=== PATIENT | female | born 1955 | race Caucasian/White ===

== ENCOUNTER 2016-09-30 12:36 | Inpatient (IN) | payer OTHER ==
[2016-09-30 14:00] VITALS: BP 129/78; PULSE 107; RESP 20; TEMP 98.3; O2SAT 94
[2016-09-30] MEDS ORDERED: AMLO5TAB2 PO (16:17)
[2016-09-30] MEDS ORDERED: FAMO20TA2 PO (16:18)
[2016-09-30] MEDS ORDERED: ESCI10TA PO (16:18)
[2016-09-30] MEDS ORDERED: LAMO25TA PO (16:19)
[2016-09-30] MEDS ORDERED: MAGN1TAB14 PO (16:20)
[2016-09-30] MEDS ORDERED: MULTTAB67 PO (16:21)
[2016-09-30] MEDS ORDERED: SERO25TA (16:22)
[2016-09-30 18:00] VITALS: BP 139/78; PULSE 98; RESP 18; TEMP 98.3
[2016-09-30] MEDS ORDERED: MAGNESIUM HYDROXIDE SUSP 30 ML CUP PO PRN (18:15)
[2016-09-30] MEDS ORDERED: LORazepam 2 MG/ML VIAL IV PUSH PRN ×4 (18:15)
[2016-09-30] MEDS ORDERED: LORazepam 2 MG TAB PO PRN (18:15)
[2016-09-30] MEDS ORDERED: ALUMINUM/MAGNESIUM/SIMETH 30 ML CUP PO PRN (18:15)
[2016-09-30] MEDS ORDERED: FLUMAZENIL 0.5 MG/5 ML VIAL IV PUSH PRN (18:15)
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
[2016-09-30] MEDS: amLODIPine BESYLATE 5 MG TAB PO SCH (20:11)
[2016-09-30] MEDS: QUEtiapine FUMARATE 25 MG TAB PO SCH (20:11)
[2016-09-30] MEDS: lamoTRIgine 25 MG TAB PO SCH (20:11)
[2016-09-30] MEDS: LORazepam 1 MG TAB PO PRN (20:58)
[2016-09-30] MEDS ORDERED: diphenhydrAMINE HCL 50 MG CAP PO PRN (21:00)
[2016-10-01 05:48] VITALS: BP 158/75; PULSE 94; RESP 16; TEMP 98; O2SAT 96
[2016-10-01] MEDS: lamoTRIgine 25 MG TAB PO SCH ×2 (09:00→20:32)
[2016-10-01] MEDS: amLODIPine BESYLATE 5 MG TAB PO SCH ×2 (09:00→20:32)
[2016-10-01] MEDS: DULoxetine HCl DR 30 MG CAP PO SCH (09:00)
[2016-10-01] MEDS: hydrOXYzine HCL 50 MG TAB PO PRN ×2 (11:25→22:10)
--- NOTE | 2016-10-01 15:03 | HHI.PYPN ---
Subjective Remarks This is a request for second opinion from Dr. Tuttle. Patient was seen, discussed with nursing, and records were reviewed. Patient has some mild tremors. She is alert and oriented 4, no auditory or visual loosening patient , no nausea or vomiting. Patient's mood has improved and she denies suicidal ideation intent or plan Objective Alert: Yes [place]: Person, Place, Date, Situation Mood: Anxious Affect: Restricted Memory Intact: Comment (not formally tested) Hallucinations: Auditory (denies) Delusions: No Delusion Type: Other (denies) Suicidal: Ideation (denies) Homicidal: Ideation (denies) Insight/Judgment Poor Vitals/IOs Vital Signs Date Time Temp Pulse Resp B/P Pulse Ox O2 Delivery O2 Flow Rate FiO2 10/01/16 05:48 98.0 94 16 158/75 96 Assessment & Plan Problem List: (1) Alcohol abuse ICD Code: F10.10 (2) Severe recurrent major depression without psychotic features ICD Code: F33.2 Assessment & Plan I agree with the first opinion. Criteria include suicidal ideation and alcohol abuse Justification for Cont. Inpt. Patient will decompensate in a less restrictive setting Request HC Surrog/Guard Advoc?: No Igor Humphrey DO Oct 01, 2016 15:03
--- NOTE | 2016-10-01 16:07 | PD.CONS ---
[facility] By [facility]ry team Reason for Consult Medical management HTN, EtOH Primary Care Physician Unknown Diagnoses: History of Present Illness Patient is a 61-year-old white female with primary medical history of HTN, GERD , PTSD, EtOH who came in to the hospital under Casas act from [facility] secondary to suicidal ideation. Patient is now admitted to inpatient psychiatry unit for further evaluation. Consulted for medical management. Patient seen today. Verified her past medical history including HTN, GERD, diverticulitis, PTSD, history of 1 seizure secondary to alcohol withdrawal. States she recently had a fall from the stairs prior to her hospitalization to [facility] and her back is painful, 8/10 to movement, dull achy, aggravated by bending, prolonged sitting, radiates to her upper back from her lower back, unrelieved by Tylenol use. States she has a right leg sean placement and has a hairline fracture of the fibula few months back, she did not see any orthopedist secondary to unable to afford co-pay for the visit. States it is also painful when she walks but her back is bothering her more than her leg. Requesting for some pain medication. Patient admitted to alcohol use one bottle of vodka daily. Reports mild tremors right now. Otherwise, denies SOB/ dyspnea. Denies chest pain, palpitations, headaches, dizziness. Denies fevers, chills, n/v/d. Review of Systems Except as stated in HPI: all other systems reviewed are Neg Past Family Social History Allergies: Coded Allergies: No Known Allergies (Unverified , 09/30/16) Past Medical History HTN GERD next and diverticulitis PTSD Seizure 1 secondary to alcohol withdrawal EtOH Past Surgical History Bursa of the hip with MRSA, sx Left knee replacement Right leg sean placement Right shoulder surgery Hysterectomy Cystocele Rectocele Reported Medications Lamotrigine 25 mg twice a day Escitalopram 10 mg daily Seroquel 25 daily Amlodipine 5 mg twice a day Famotidine 20 mg daily Multivitamin 1 tab daily Magnesium 400 twice a day Active Ordered Medications Current Medications Medications (Trade) Dose Ordered Sig/Perry Route Start Time Stop Time Status Last Admin (Benadryl) 50 mg HS PRN PO 09/30/16 21:00 (Tylenol) 650 mg Q4H PRN PO 09/30/16 18:15 (Milk Of Magnesia Liq) 30 ml DAILY PRN PO 09/30/16 18:15 (Mag-Al Plus Susp Liq) 30 ml Q6H PRN PO 09/30/16 18:15 (Atarax) 50 mg Q6H PRN PO 09/30/16 18:15 10/01/16 11:25 (Romazicon Inj) 0.2 mg Q1M PRN IV PUSH 09/30/16 18:15 (Ativan) 1 mg Q4H PRN PO 09/30/16 18:15 09/30/16 20:58 (Ativan Inj) 1 mg Q4H PRN IV PUSH 09/30/16 18:15 (Ativan) 2 mg Q2H PRN PO 09/30/16 18:15 (Ativan Inj) 2 mg Q2H PRN IV PUSH 09/30/16 18:15 (Ativan Inj) 2 mg Q1H PRN IV PUSH 09/30/16 18:15 (Ativan Inj) 2 mg Q15M PRN IV PUSH 09/30/16 18:15 (Norvasc) 5 mg BID PO 09/30/16 21:00 10/01/16 09:00 (LaMICtal) 25 mg BID PO 09/30/16 21:00 10/01/16 09:00 (SEROquel) 25 mg HS PO 09/30/16 21:00 09/30/16 20:11 (Cymbalta Dr) 30 mg DAILY PO 10/01/16 09:00 10/01/16 09:00 Family History Mother, father, sibling has heart disease, diabetes Social History Daily alcohol use one bottle vodka 2 pack per week tobacco use current Denies illicit drug use Physical Exam Vital Signs Vital Signs Date Time Temp Pulse Resp B/P Pulse Ox O2 Delivery O2 Flow Rate FiO2 10/01/16 05:48 98.0 94 16 158/75 96 09/30/16 18:00 98.3 98 18 139/78 Physical Exam GENERAL: This is a well-nourished, well-developed patient, in no apparent distress. SKIN: No rashes, ecchymoses or lesions. Warm and dry. HEAD: Atraumatic. Normocephalic. No temporal or scalp tenderness. EYES: Pupils equal round and reactive. No scleral icterus. No injection or drainage. ENT: Nose without bleeding. Throat without erythema. Uvula midline. Airway patent. NECK: Trachea midline. No JVD or lymphadenopathy. Supple. CARDIOVASCULAR: Regular rate and rhythm without murmurs, gallops, or rubs. RESPIRATORY: No wheezes, rales, or rhonchi. Moderate air entry GASTROINTESTINAL: Abdomen soft, non-tender, nondistended. Bowel sounds active 4. MUSCULOSKELETAL: Extremities without clubbing, cyanosis, or edema. Lumbar and thoracic area mild tenderness to palpation. Guarded gait, left-leaning secondary to pain on the right lower extremity. Mild tremors bilateral upper extremity. NEUROLOGICAL: Awake and alert. No focal neuro deficit. Motor and sensory grossly within normal limits. Normal speech. Assessment and Plan Problem List: (1) Severe recurrent major depression without psychotic features ICD Code: F33.2 Status: Acute (2) Depression, major, single episode, moderate ICD Code: F32.1 Status: Acute (3) Alcohol abuse ICD Code: F10.10 Status: Acute (4) HTN (hypertension) ICD Code: I10 Status: Chronic Assessment and Plan Patient is a 61-year-old white female with primary medical history of HTN, GERD , PTSD, EtOH who came in to the hospital under Casas act from [facility] secondary to suicidal ideation. Patient is now admitted to inpatient psychiatry unit for further evaluation. Consulted for medical management. Suicidal ideation, depression - Managed by psychiatry team Seizures, from alcohol withdrawal - Continue lamotrigine - Seizure precautions EtOH - High risk for seizure from withdrawal - [facility] protocol - Folic acid, thiamine - Monitor for withdrawals HTN - Continue with amlodipine 5 mg daily Right leg pain Back pain, spasms - Start baclofen 10 mg 3 times a day when necessary - If continues to have pain on the right leg or back we'll consider x-rays studies GERD - Counseled patient EtOH can promote GERD symptoms - Pantoprazole for now DVT prop ambulatory Written by Tika Tobin, acting as scribe for Dr. Almodovar on 10/01/16 at 16:07. All or portions of this note were transcribed by donita COMBS. I, Dr. Ericka Almodovar personally performed the history, physical exam, and medical decision making; and confirmed the accuracy of the information in the transcribed note. Authenticated by Dr. Ericka Almodovar on 10/01/16 at 16:07. Code Status Full code Discussed Condition With Patient, nursing Tika Caal Oct 01, 2016 16:07 Ericka Almodovar MD Oct 02, 2016 16:02
[2016-10-01] MEDS ORDERED: IBUPROFEN 600 MG TAB PO PRN (17:30)
[2016-10-01 19:34] VITALS: BP 165/107; PULSE 106; RESP 18; TEMP 98.1; O2SAT 95
[2016-10-01] MEDS: BACLOFEN 10 MG TAB PO PRN (20:32)
[2016-10-01] MEDS: QUEtiapine FUMARATE 25 MG TAB PO SCH (20:32)
[2016-10-02] VITALS (7 sets, daily range): BP systolic 117–184; BP diastolic 66–99; PULSE 90–110; RESP 17–20; TEMP 97.9–98.2; O2SAT 97–99
[2016-10-02] MEDS: ACETAMINOPHEN 325 MG TAB PO PRN (04:53)
[2016-10-02] MEDS: hydrOXYzine HCL 50 MG TAB PO PRN (04:54)
[2016-10-02] MEDS ORDERED: cloNIDine HCL 0.1 MG TAB PO ONE (05:15)
[2016-10-02] MEDS: amLODIPine BESYLATE 5 MG TAB PO SCH ×2 (09:08→21:36)
[2016-10-02] MEDS: FOLIC ACID 1 MG TAB PO SCH (09:08)
[2016-10-02] MEDS: THIAMINE HCL 100 MG TAB PO SCH (09:08)
[2016-10-02] MEDS: DULoxetine HCl DR 30 MG CAP PO SCH (09:08)
[2016-10-02] MEDS: lamoTRIgine 25 MG TAB PO SCH ×2 (09:09→21:35)
[2016-10-02] MEDS: BACLOFEN 10 MG TAB PO PRN ×2 (09:48→16:50)
[2016-10-02] MEDS: LORazepam 1 MG TAB PO PRN ×2 (11:24→16:50)
[2016-10-02] MEDS: cloNIDine HCL 0.1 MG TAB PO PRN (15:23)
[2016-10-02] MEDS ORDERED: LORazepam 2 MG/ML VIAL IV PUSH ONE (16:00)
--- NOTE | 2016-10-02 16:34 | HHI.PYPN ---
Subjective Remarks Patient was seen and case discussed with nursing. This afternoon her blood pressure has been elevated. She was 1. She is alert and oriented 4. No tremors, nausea or vomiting, visual hallucinations or acute change in mental status. However she is complaining of a headache had mild chest pain earlier, and her left eye is blurry. Medical team was called, Dr. Montgomery, and she was asked to evaluate patient today and Dr. Montgomery confirmed that she will come evaluate her in person today. Mood is stable at this time. She denies suicidal ideation intent or plan. Objective Alert: Yes [place]: Person, Place, Date, Situation Mood: Calm Affect: Euthymic Memory Intact: Comment (not formally tested) Hallucinations: Auditory (denies) Delusions: No Delusion Type: Other (denies) Suicidal: Ideation (denies) Homicidal: Ideation (denies) Insight/Judgment fair Vitals/IOs Vital Signs Date Time Temp Pulse Resp B/P Pulse Ox O2 Delivery O2 Flow Rate FiO2 10/02/16 15:00 106 18 184/99 10/02/16 05:00 97.9 97 Assessment & Plan Problem List: (1) Alcohol abuse ICD Code: F10.10 (2) Severe recurrent major depression without psychotic features ICD Code: F33.2 Assessment & Plan EKG ordered, awaiting medical consult. Justification for Cont. Inpt. Patient will decompensate in a less restrictive setting Request HC Surrog/Guard Advoc?: No Igor Humphrey DO Oct 02, 2016 16:34
[2016-10-02] MEDS: PROPRANOLOL HCL 10 MG TAB PO PRN (16:50)
[2016-10-02] MEDS ORDERED: ASPIRIN 325 MG TAB PO ONE (17:15)
[2016-10-02] MEDS ORDERED: NITROGLYCERIN 0.4 MG SL 25 TABS/BTL SL PRN (17:15)
--- NOTE | 2016-10-02 17:25 | HHI.PR ---
Subjective Remarks Patient seen today for complaints of chest pain. Chest pain is described as sharp midsternal, nonradiating, not associated with any nausea, vomiting, diaphoresis, or shortness of breath, rated 5/10 the patient states that it was higher than that earlier, not aggravated by exertion. States that she is feeling the pain on her chest but she feels burning sensation on her neck towards her ears. She wasn't given any pain medications but the pain has subsided because she has rested. Patient known history of EtOH abuse, 1 bottle vodka daily. Known to have seizure secondary to alcohol withdrawals. Patient states she's been having "the shakes." States it's not getting worse. Otherwise, denies SOB/ dyspnea. Denies chest pain, palpitations, headaches, dizziness. Denies fevers, chills, n/v/d. Objective Vitals Vital Signs Date Time Temp Pulse Resp B/P Pulse Ox O2 Delivery O2 Flow Rate FiO2 10/02/16 15:00 106 18 184/99 10/02/16 10:50 103 18 150/89 10/02/16 06:15 95 147/72 10/02/16 05:05 100 20 160/90 10/02/16 05:00 97.9 110 17 170/91 97 10/01/16 19:34 98.1 106 18 165/107 95 Objective Remarks GENERAL: This is a well-nourished, well-developed patient, in no apparent distress. SKIN: No rashes, ecchymoses or lesions. Warm and dry. HEAD: Atraumatic. Normocephalic. No temporal or scalp tenderness. EYES: Pupils equal round and reactive. No scleral icterus. No injection or drainage. ENT: Nose without bleeding. Throat without erythema. Uvula midline. Airway patent. NECK: Trachea midline. No JVD or lymphadenopathy. Supple. CARDIOVASCULAR: Tachycardia with systolic 2/6 murmurs, gallops, or rubs. RESPIRATORY: No wheezes, rales, or rhonchi. Moderate air entry GASTROINTESTINAL: Abdomen soft, non-tender, nondistended. Bowel sounds active 4. MUSCULOSKELETAL: Extremities without clubbing, cyanosis, or edema. Mild tremors bilateral upper extremity. NEUROLOGICAL: Awake and alert. No focal neuro deficit. Motor and sensory grossly within normal limits. Normal speech. A/P Problem List: (1) Severe recurrent major depression without psychotic features ICD Code: F33.2 Status: Acute (2) Depression, major, single episode, moderate ICD Code: F32.1 Status: Acute (3) Alcohol abuse ICD Code: F10.10 Status: Acute (4) HTN (hypertension) ICD Code: I10 Status: Chronic Assessment and Plan Patient is a 61-year-old white female with primary medical history of HTN, GERD , PTSD, EtOH who came in to the hospital under Casas act from [facility] secondary to suicidal ideation. Patient is now admitted to inpatient psychiatry unit for further evaluation. Consulted for medical management. Chest pain, rule out ACS HTN, uncontrolled, urgency - Check serial EKG, serial troponin, serial CK - Check CBC, CMP, magnesium - Chest x-ray - Patient has known EtOH abuse, one bottle of vodka daily. Possible withdrawal symptoms would include tachycardia, elevated BP and tremors. Continue CIWA. - ASA 3251 dose, nitroglycerin sublingual when necessary - Continue with BP med Norvasc 5 mg twice a day, clonidine 0.1 mg when necessary, propanolol 10 mg when necessary. Add propanolol 20 mg twice a day. - Monitor BP trend - On exam patient appears to be comfortable, worried about dinner being cold , chest pain nonreproducible but states she's feeling better. After exam, patient immediately stood up and went to have dinner. Suicidal ideation, depression - Managed by psychiatry team Seizures, from alcohol withdrawal - Continue lamotrigine - Seizure precautions EtOH - High risk for seizure from withdrawal - CIWA protocol - Folic acid, thiamine - Monitor for withdrawals Right leg pain Back pain, spasms - Start baclofen 10 mg 3 times a day when necessary - If continues to have pain on the right leg or back we'll consider x-rays studies GERD - Counseled patient EtOH can promote GERD symptoms - Pantoprazole for now DVT prop ambulatory Discussed with patient, nursing, DrTika Andrade Oct 02, 2016 17:25 Ericka Almodovar MD Oct 02, 2016 19:09
[2016-10-02 17:55] LABS: CREATINE KINASE 84 U/L (26-192)
--- NOTE | 2016-10-02 17:59 | RADRPT ---
EXAM DATE/TIME: 10/02/2016 17:10 [place] COMPARISON: No previous studies available for comparison. EXTERNAL COMPARISON : [facility] INDICATIONS : Chest pain. MEDICAL HISTORY : Hypertension. SURGICAL HISTORY : Biopsy, right breast. ENCOUNTER: Initial ACUITY: 1 day PAIN SCORE: 3/10 LOCATION: Left chest FINDINGS: A single view of the chest demonstrates the lungs to be symmetrically aerated without evidence of mas s, infiltrate or effusion. Minimal basilar atelectasis. The cardiomediastinal contours are unremarka ble. Osseous structures are intact. CONCLUSION: 1. Minimal basilar atelectasis. Exam otherwise unremarkable. Braxton May MD on October 02, 2016 at 17:58 Board Certified Radiologist. This report was verified electronically.
[2016-10-02 19:38] LABS: ALKALINE PHOSPHATASE 83 U/L (45-117); ALT (GPT) 35 U/L (10-53); ANION GAP 10 MEQ/L (5-15); AST (GOT) 45 U/L (15-37); BICARBONATE 23.9 MEQ/L (21.0-32.0); BLOOD UREA NITROGEN 20 MG/DL (7-18); CHLORIDE 103 MEQ/L (98-107); GLOMERULAR FILTRATION RATE 61 ML/MIN (>89); MAGNESIUM 2.2 MG/DL (1.5-2.5); POTASSIUM 4.2 MEQ/L (3.5-5.1); SODIUM (NA) 137 MEQ/L (136-145); TOTAL BILIRUBIN ADULT 0.3 MG/DL (0.2-1.0)
[2016-10-02 21:22] LABS: AUTOMATED NEUTROPHIL # 4.6 TH/MM3 (1.8-7.7); BASOPHIL # 0.1 TH/MM3 (0-0.2); BASOPHIL % 0.7 % (0.0-2.0); EOSINOPHIL # 0.2 TH/MM3 (0-0.4); HEMATOCRIT 38.3 % (35.0-46.0); HEMO FLAGS DIFF FINAL; LYMPH % 27.3 % (9.0-44.0); LYMPHOCYTE # 2.1 TH/MM3 (1.0-4.8); MEAN CELL VOLUME 91.1 FL (80.0-100.0); MEAN CORPUSCULAR HEMOGLOBIN 30.3 PG (27.0-34.0); MEAN CORPUSCULAR HGB CONC 33.2 % (32.0-36.0); MONO % 10.7 % (0.0-8.0); NEUT % 59.3 % (16.0-70.0); PLATELET COUNT 209 TH/MM3 (150-450); RED BLOOD COUNT 4.21 MIL/MM3 (4.00-5.30); WHITE BLOOD COUNT 7.8 TH/MM3 (4.0-11.0)
[2016-10-02] MEDS: PROPRANOLOL HCL 20 MG TAB PO SCH (21:35)
[2016-10-02] MEDS: QUEtiapine FUMARATE 25 MG TAB PO SCH (21:35)
[2016-10-03 00:30] LABS: CREATINE KINASE 67 U/L (26-192)
[2016-10-03 03:20] VITALS: BP 117/60; PULSE 82; RESP 20; TEMP 98.5; O2SAT 96
[2016-10-03 06:17] LABS: CREATINE KINASE 65 U/L (26-192)
[2016-10-03 06:24] VITALS: BP 117/60; PULSE 82; RESP 20; TEMP 98.5; O2SAT 96
[2016-10-03] MEDS: FOLIC ACID 1 MG TAB PO SCH (08:38)
[2016-10-03] MEDS: DULoxetine HCl DR 30 MG CAP PO SCH (08:38)
[2016-10-03] MEDS: PROPRANOLOL HCL 20 MG TAB PO SCH ×2 (08:39→21:10)
[2016-10-03] MEDS: PANTOPRAZOLE SOD 40 MG DELAYED RELEASE TAB PO SCH (08:39)
[2016-10-03] MEDS: lamoTRIgine 25 MG TAB PO SCH ×2 (08:39→21:10)
[2016-10-03] MEDS: amLODIPine BESYLATE 5 MG TAB PO SCH ×2 (08:39→21:10)
[2016-10-03] MEDS: THIAMINE HCL 100 MG TAB PO SCH (08:39)
[2016-10-03] MEDS: LORazepam 1 MG TAB PO PRN (09:19)
--- NOTE | 2016-10-03 13:56 | EKG ---
Date Performed: 10/02/2016 Time Performed: 16:51:33 PTAGE: 61 years EKG: SINUS TACHYCARDIA ABNORMAL RHYTHM ECG NO PREVIOUS TRACING DOCTOR: Diana Mariee Interpretating Date/Time 10/03/2016 13:55:44
--- NOTE | 2016-10-03 13:57 | HHI.PR ---
Subjective Remarks Follow up chest pain and tremors from yesterday. Patient was seen and examined. Tremors are noted but seem to be improving. Patient denies any further chest pain. She does state she is feeling a little more depressed today then she has been, and has not seen the psychiatrist today.She also denies any sob, nausea, vomiting, fever or chills. She is complaining of congestion from seasonal allergies. She states she usually takes [place] nasal spray OTC. Objective Vitals Vital Signs Date Time Temp Pulse Resp B/P Pulse Ox O2 Delivery O2 Flow Rate FiO2 10/03/16 06:24 98.5 82 20 117/60 96 10/03/16 03:20 98.5 82 20 117/60 96 10/02/16 21:00 98.2 90 20 154/98 99 10/02/16 19:51 107 117/66 97 10/02/16 15:00 106 18 184/99 I/O 10/02/16 10/02/16 10/02/16 10/03/16 10/03/16 10/03/16 07:00 15:00 23:00 07:00 15:00 23:00 Intake Total 360 ml Balance 360 ml Intake Oral 360 ml Result Diagram: 10/02/16 2100 10/02/16 1713 Objective Remarks GENERAL: This is a well-nourished, well-developed patient, who is crying from depression. SKIN: No rashes, ecchymoses or lesions. Warm and dry. HEAD: Atraumatic. Normocephalic. No temporal or scalp tenderness. EYES: Pupils equal round and reactive. No scleral icterus. No injection or drainage. ENT: Nose without bleeding. Throat without erythema. Uvula midline. Airway patent. NECK: Trachea midline. No JVD or lymphadenopathy. Supple. CARDIOVASCULAR: Regular rate and rhythm, no gallops, or rubs. RESPIRATORY: No wheezes, rales, or rhonchi. Moderate air entry GASTROINTESTINAL: Abdomen soft, non-tender, nondistended. Bowel sounds active 4. MUSCULOSKELETAL: Extremities without clubbing, cyanosis, or edema. Decreased tremors in bilateral upper extremity. NEUROLOGICAL: Awake and alert. No focal neuro deficit. Motor and sensory grossly within normal limits. Normal speech. A/P Medications and IVs Current Medications Medications (Trade) Dose Ordered Sig/Perry Route Start Time Stop Time Status Last Admin (Benadryl) 50 mg HS PRN PO 09/30/16 21:00 (Tylenol) 650 mg Q4H PRN PO 09/30/16 18:15 10/02/16 04:53 (Milk Of Magnesia Liq) 30 ml DAILY PRN PO 09/30/16 18:15 (Mag-Al Plus Susp Liq) 30 ml Q6H PRN PO 09/30/16 18:15 (Atarax) 50 mg Q6H PRN PO 09/30/16 18:15 10/02/16 04:54 (Romazicon Inj) 0.2 mg Q1M PRN IV PUSH 09/30/16 18:15 (Ativan) 1 mg Q4H PRN PO 09/30/16 18:15 10/03/16 09:19 (Ativan Inj) 1 mg Q4H PRN IV PUSH 09/30/16 18:15 (Ativan) 2 mg Q2H PRN PO 09/30/16 18:15 10/01/16 15:45 (Ativan Inj) 2 mg Q2H PRN IV PUSH 09/30/16 18:15 (Ativan Inj) 2 mg Q1H PRN IV PUSH 09/30/16 18:15 (Ativan Inj) 2 mg Q15M PRN IV PUSH 09/30/16 18:15 (Norvasc) 5 mg BID PO 09/30/16 21:00 10/03/16 08:39 (LaMICtal) 25 mg BID PO 09/30/16 21:00 10/03/16 08:39 (SEROquel) 25 mg HS PO 09/30/16 21:00 10/02/16 21:35 (Cymbalta Dr) 30 mg DAILY PO 10/01/16 09:00 10/03/16 08:38 (Folate) 1 mg DAILY PO 10/02/16 09:00 10/03/16 08:38 (Vitamin B1) 100 mg DAILY PO 10/02/16 09:00 10/03/16 08:39 (Lioresal) 10 mg Q8HR PRN PO 10/01/16 16:15 10/02/16 16:50 (Motrin) 600 mg Q6H PRN PO 10/01/16 17:30 (Catapres) 0.1 mg Q6H PRN PO 10/02/16 05:30 10/02/16 15:23 (Inderal) 10 mg Q8HR PRN PO 10/02/16 17:00 10/02/16 16:50 ([place] 5-325 Mg) 1 tab Q6H PRN PO 10/02/16 17:00 (Nitrostat Sl) 0.4 mg Q5M PRN SL 10/02/16 17:15 (Inderal) 20 mg Q12HR PO 10/02/16 21:00 10/03/16 08:39 (Protonix) 40 mg DAILY PO 10/03/16 09:00 10/17/16 08:59 10/03/16 08:39 Urinary Catheter: No Vascular Central Line Catheter: No A/P Problem List: (1) Severe recurrent major depression without psychotic features ICD Code: F33.2 Status: Acute (2) Depression, major, single episode, moderate ICD Code: F32.1 Status: Acute (3) Alcohol abuse ICD Code: F10.10 Status: Chronic (4) HTN (hypertension) ICD Code: I10 Status: Chronic (5) Seasonal allergies ICD Code: J30.2 Status: Acute (6) GERD (gastroesophageal reflux disease) ICD Code: K21.9 Status: Chronic (7) Chest pain ICD Code: R07.9 Status: Resolved Assessment and Plan Patient is a 61-year-old female with a medical history of HTN, GERD, PTSD, EtOH who came in to the hospital under Casas act from [facility] secondary to suicidal ideation. Patient is now admitted to inpatient psychiatry unit for further evaluation. We are continuing to follow for medical management and chest pain. Chest pain, resolved, HTN controlled, Withdrawal symptoms improving Labs: Troponin and CPK negative, CBC, Mg and CMP unremarkable Chest x-ray shows minimal basilar atelectasis - Cont sublingual nitro if needed - Continue with BP med Norvasc 5 mg twice a day, clonidine 0.1 mg when necessary, propranolol 10 mg prn. - Cont propranolol 20 mg twice a day. - Monitor BP and trend Suicidal ideation, depression - Managed by psychiatry team Seizures, from alcohol withdrawal - Continue lamotrigine - Seizure precautions EtOH abuse, chronic - Cont [facility] protocol - Folic acid, thiamine - Monitor for withdrawals Right leg pain, currently resolved Back pain, spasms - Cont baclofen 10 mg 3 times a day when necessary - If continues to have pain on the right leg or back we'll consider x-rays studies GERD, chronic - Cont Pantoprazole Daily Seasonal allergies, patient usually takes [place] nasal spray at home. -Flonase BID DVT prophylaxis: Encourage ambulation Discussed with patient, and nursing staff Written by SAMEER Zimmerman acting as scribe for Dr. Almodovar on 10/03/16 at 11: 22. All or portions of this note were transcribed by scribErika COMBS. I, Dr. Ericka Almodovar personally performed the history, physical exam, and medical decision making; and confirmed the accuracy of the information in the transcribed note. Authenticated by Dr. Ericka Almodovar on 10/03/16 at 11:22. Discharge Planning Once cleared by psychiatry Claudia Vinson Oct 03, 2016 13:57 Ericka Almodovar MD Oct 03, 2016 16:05
--- NOTE | 2016-10-03 14:06 | EKG ---
Date Performed: 10/03/2016 Time Performed: 06:17:51 PTAGE: 61 years EKG: Sinus rhythm Since previous tracing, no significant change noted NORMAL ECG PREVIOUS TRACING : 10/02/2016 22.28 DOCTOR: Diana Mariee Interpretating Date/Time 10/03/2016 14:04:38
--- NOTE | 2016-10-03 14:06 | EKG ---
Date Performed: 10/02/2016 Time Performed: 22:28:16 PTAGE: 61 years EKG: Sinus rhythm Since previous tracing, no significant change noted NORMAL ECG PREVIOUS TRACING : 10/02/2016 16.51 DOCTOR: Diana Mariee Interpretating Date/Time 10/03/2016 14:04:27
--- NOTE | 2016-10-03 16:13 | HHI.PYPN ---
Subjective Remarks Patient discussed with treatment team, chart reviewed, patient showing unit. Patient remains manic somewhat intrusive intense superficial, though she is compliant with medications. Though at times appears to be somewhat drug- seeking. I reviewed with her the see work protocols and that to be no additional benzodiazepines offered. Patient also somewhat minimized how significant her alcohol use is. Review of Systems Except as stated in HPI: all other systems reviewed are Neg Objective Alert: Yes [place]: Person, Place, Date, Situation Mood: Calm Affect: Euthymic Memory Intact: Comment (not formally tested) Hallucinations: Auditory (denies) Delusions: No Delusion Type: Other (denies) Suicidal: Ideation (denies) Homicidal: Ideation (denies) Insight/Judgment Poor Labs Test 10/02/16 10/02/16 10/02/16 10/03/16 17:13 21:00 23:15 05:12 Sodium Level 137 MEQ/L Potassium Level 4.2 MEQ/L Chloride Level 103 MEQ/L Carbon Dioxide Level 23.9 MEQ/L Anion Gap 10 MEQ/L Blood Urea Nitrogen 20 MG/DL Creatinine 0.94 MG/DL Estimat Glomerular Filtration 61 ML/MIN Rate Random Glucose 100 MG/DL Calcium Level 9.2 MG/DL Magnesium Level 2.2 MG/DL Total Bilirubin 0.3 MG/DL Aspartate Amino Transf 45 U/L (AST/SGOT) Alanine Aminotransferase 35 U/L (ALT/SGPT) Alkaline Phosphatase 83 U/L Total Creatine Kinase 84 U/L 67 U/L 65 U/L Troponin I LESS THAN 0.02 LESS THAN 0.02 LESS THAN 0.02 NG/ML NG/ML NG/ML Total Protein 7.1 GM/DL Albumin 3.6 GM/DL White Blood Count 7.8 TH/MM3 Red Blood Count 4.21 MIL/MM3 Hemoglobin 12.7 GM/DL Hematocrit 38.3 % Mean Corpuscular Volume 91.1 FL Mean Corpuscular Hemoglobin 30.3 PG Mean Corpuscular Hemoglobin 33.2 % Concent Red Cell Distribution Width 14.0 % Platelet Count 209 TH/MM3 Mean Platelet Volume 8.2 FL Neutrophils (%) (Auto) 59.3 % Lymphocytes (%) (Auto) 27.3 % Monocytes (%) (Auto) 10.7 % Eosinophils (%) (Auto) 2.0 % Basophils (%) (Auto) 0.7 % Neutrophils # (Auto) 4.6 TH/MM3 Lymphocytes # (Auto) 2.1 TH/MM3 Monocytes # (Auto) 0.8 TH/MM3 Eosinophils # (Auto) 0.2 TH/MM3 Basophils # (Auto) 0.1 TH/MM3 CBC Comment DIFF FINAL Differential Comment Vitals/IOs Vital Signs Date Time Temp Pulse Resp B/P Pulse Ox O2 Delivery O2 Flow Rate FiO2 10/03/16 06:24 98.5 82 20 117/60 96 Assessment & Plan Problem List: (1) Alcohol abuse ICD Code: F10.10 (2) Severe recurrent major depression without psychotic features ICD Code: F33.2 Assessment & Plan Estimated LOS: days patient mood appears to be recovering, there appears to be some lability noted at this time. Patient compliant medications. For now continue treatment Justification for Cont. Inpt. At this time patient will decompensate placed in the lower level of care Discharge Planning To be determined Request HC Surrog/Guard Advoc?: No Feng Tuttle MD Oct 03, 2016 16:13
[2016-10-03] MEDS: BACLOFEN 10 MG TAB PO PRN (17:32)
[2016-10-03 18:23] VITALS: BP 160/102; PULSE 99; RESP 20; TEMP 96.9; O2SAT 100
[2016-10-03] MEDS: QUEtiapine FUMARATE 25 MG TAB PO SCH (21:10)
[2016-10-03] MEDS: FLUTICASONE PROPIONATE 50 MCG/ACT 16 GM NASAL SPRAY EACH NARE SCH (21:11)
[2016-10-04 05:23] VITALS: BP 155/94; PULSE 95; RESP 18; TEMP 97.2; O2SAT 98
[2016-10-04] MEDS: BACLOFEN 10 MG TAB PO PRN ×3 (06:28→21:18)
[2016-10-04] MEDS: FLUTICASONE PROPIONATE 50 MCG/ACT 16 GM NASAL SPRAY EACH NARE SCH ×2 (09:11→21:18)
[2016-10-04] MEDS: lamoTRIgine 25 MG TAB PO SCH ×2 (09:11→20:19)
[2016-10-04] MEDS: DULoxetine HCl DR 30 MG CAP PO SCH (09:11)
[2016-10-04] MEDS: PROPRANOLOL HCL 20 MG TAB PO SCH ×2 (09:11→20:19)
[2016-10-04] MEDS: PANTOPRAZOLE SOD 40 MG DELAYED RELEASE TAB PO SCH (09:11)
[2016-10-04] MEDS: THIAMINE HCL 100 MG TAB PO SCH (09:11)
[2016-10-04] MEDS: amLODIPine BESYLATE 5 MG TAB PO SCH ×2 (09:12→20:19)
[2016-10-04] MEDS: FOLIC ACID 1 MG TAB PO SCH (09:12)
[2016-10-04] MEDS: ACETAMINOPHEN/HYDROcodone 325 MG/5 MG TAB PO PRN (09:24)
--- NOTE | 2016-10-04 10:45 | HHI.PR ---
Addendum to Inpatient Note Addendum Reason: Additional Documentation Additional Information Patient is stable, blood pressure mildly elevated due to agitation, given Ativan this morning. Patient was playing cards and socializing in activity room this morning. We will sign off for now as patient is hemodynamically stable, please reconsult if needed. Cont Norvasc and propranolol for BP. (Claudia Vinson) Claudia Vinson Oct 04, 2016 10:44 Ericka Almodovar MD Oct 04, 2016 16:42
--- NOTE | 2016-10-04 12:59 | HHI.PYPN ---
Subjective Remarks Patient seen in [place] with nurse Marilu, chart reviewed, patient compliant medications, now denies suicidality, though she continues somewhat labile now stating lady she is living with his been hospitalized. There is some lability to her behaviors perhaps related to the withdrawal from her alcohol abuse. For now continue treatment no change Review of Systems Except as stated in HPI: all other systems reviewed are Neg Objective Alert: Yes [place]: Person, Place, Date, Situation Mood: Calm Affect: Euthymic Memory Intact: Comment (not formally tested) Hallucinations: Auditory (denies) Delusions: No Delusion Type: Other (denies) Suicidal: Ideation (denies) Homicidal: Ideation (denies) Insight/Judgment Poor Labs Test 10/03/16 18:10 Nasal Screen MRSA (PCR) NEGATIVE Vitals/IOs Vital Signs Date Time Temp Pulse Resp B/P Pulse Ox O2 Delivery O2 Flow Rate FiO2 10/04/16 05:23 97.2 95 18 155/94 98 Intake and Output 10/03/16 10/03/16 10/04/16 08:00 16:00 00:00 Intake Total 360 ml 240 ml Balance 360 ml 240 ml Assessment & Plan Problem List: (1) Alcohol abuse ICD Code: F10.10 (2) Severe recurrent major depression without psychotic features ICD Code: F33.2 Assessment & Plan Estimated LOS: days patient continues somewhat labile and tearful, though she denies suicidality at this time. For now continue treatment Justification for Cont. Inpt. At this time patient would decompensate placed a lower level of care Discharge Planning To be determined Request HC Surrog/Guard Advoc?: No Feng Tuttle MD Oct 04, 2016 12:59
[2016-10-04 17:47] VITALS: BP 146/83; PULSE 81; RESP 18; TEMP 97.6; O2SAT 98
[2016-10-04] MEDS: QUEtiapine FUMARATE 25 MG TAB PO SCH (20:19)
[2016-10-05 05:32] VITALS: BP 134/73; PULSE 95; RESP 17; TEMP 97.6; O2SAT 95
[2016-10-05] MEDS: DULoxetine HCl DR 30 MG CAP PO SCH (08:45)
[2016-10-05] MEDS: lamoTRIgine 25 MG TAB PO SCH ×2 (08:45→20:49)
[2016-10-05] MEDS: THIAMINE HCL 100 MG TAB PO SCH (08:45)
[2016-10-05] MEDS: PROPRANOLOL HCL 20 MG TAB PO SCH ×2 (08:45→20:49)
[2016-10-05] MEDS: FOLIC ACID 1 MG TAB PO SCH (08:45)
[2016-10-05] MEDS: PANTOPRAZOLE SOD 40 MG DELAYED RELEASE TAB PO SCH (08:46)
[2016-10-05] MEDS: amLODIPine BESYLATE 5 MG TAB PO SCH ×2 (08:46→20:48)
[2016-10-05] MEDS: FLUTICASONE PROPIONATE 50 MCG/ACT 16 GM NASAL SPRAY EACH NARE SCH ×2 (08:49→20:48)
[2016-10-05] MEDS: BACLOFEN 10 MG TAB PO PRN (09:10)
--- NOTE | 2016-10-05 12:33 | HHI.PYPN ---
Subjective Remarks Patient seen in [place] with nurse Georgette, chart review, continue somewhat labile, and intrusive. Patient states still some occasional auditory hallucinations towards bedtime, denies suicidality. Continues to be somewhat minimizing the role that alcohol placement life. For now continue treatment will increase at bedtime Seroquel to 50 mg Review of Systems Except as stated in HPI: all other systems reviewed are Neg Objective Alert: Yes [place]: Person, Place, Date, Situation Mood: Calm Affect: Euthymic Memory Intact: Comment (not formally tested) Hallucinations: Auditory (denies) Delusions: No Delusion Type: Other (denies) Suicidal: Ideation (denies) Homicidal: Ideation (denies) Insight/Judgment Poor Vitals/IOs Vital Signs Date Time Temp Pulse Resp B/P Pulse Ox O2 Delivery O2 Flow Rate FiO2 10/05/16 05:32 97.6 95 17 134/73 95 Assessment & Plan Problem List: (1) Alcohol abuse ICD Code: F10.10 (2) Severe recurrent major depression without psychotic features ICD Code: F33.2 Assessment & Plan Estimated LOS: days patient somewhat labile and depressed, with continued auditory hallucinations please see medication adjustment above Justification for Cont. Inpt. At this time patient will decompensate if placed on a lower level of care Discharge Planning To be determined Request HC Surrog/Guard Advoc?: No Feng Tuttle MD Oct 05, 2016 12:33
[2016-10-05] MEDS: cloNIDine HCL 0.1 MG TAB PO PRN (16:40)
[2016-10-05 16:44] VITALS: BP 186/103; PULSE 118
[2016-10-05 17:36] VITALS: BP 132/81; PULSE 101; RESP 18; TEMP 97.6; O2SAT 97
[2016-10-05] MEDS: ACETAMINOPHEN/HYDROcodone 325 MG/5 MG TAB PO PRN (20:45)
[2016-10-05] MEDS: QUEtiapine FUMARATE 25 MG TAB PO SCH (20:48)
[2016-10-05] MEDS: hydrOXYzine HCL 50 MG TAB PO PRN (20:59)
[2016-10-06] MEDS: ACETAMINOPHEN/HYDROcodone 325 MG/5 MG TAB PO PRN ×2 (03:45→13:36)
[2016-10-06 05:20] VITALS: BP 139/6; PULSE 80; RESP 16; TEMP 97.8
[2016-10-06] MEDS: FLUTICASONE PROPIONATE 50 MCG/ACT 16 GM NASAL SPRAY EACH NARE SCH ×2 (09:00→20:42)
[2016-10-06] MEDS: THIAMINE HCL 100 MG TAB PO SCH (09:26)
[2016-10-06] MEDS: amLODIPine BESYLATE 5 MG TAB PO SCH (09:26)
[2016-10-06] MEDS: PROPRANOLOL HCL 20 MG TAB PO SCH ×2 (09:26→20:39)
[2016-10-06] MEDS: PANTOPRAZOLE SOD 40 MG DELAYED RELEASE TAB PO SCH (09:26)
[2016-10-06] MEDS: DULoxetine HCl DR 30 MG CAP PO SCH (09:26)
[2016-10-06] MEDS: FOLIC ACID 1 MG TAB PO SCH (09:27)
[2016-10-06] MEDS: lamoTRIgine 25 MG TAB PO SCH ×2 (09:27→20:41)
--- NOTE | 2016-10-06 10:36 | HHI.PYPN ---
Subjective Remarks Patient seen in day room with nurse Tatyana, patient remains somewhat intrusive labile with some pressured rapid speech. Patient states that history of being somewhat intense with at times being somewhat of a thrill seeker/risk taker. Patient complaining of some swelling discomfort right lower leg and ankle. Will have hospitalist reconsult with that. Will increase Seroquel to 25 mg 8 AM and 4 PM continue the 50 mg at at bedtime Review of Systems Except as stated in HPI: all other systems reviewed are Neg Musculoskeletal: COMPLAINS OF: Joint Swelling (left lower leg and ankle with discomfort in that area) Objective Alert: Yes [place]: Person, Place, Date, Situation Mood: Calm Affect: Euthymic Memory Intact: Comment (not formally tested) Hallucinations: Auditory (denies) Delusions: No Delusion Type: Other (denies) Suicidal: Ideation (denies) Homicidal: Ideation (denies) Insight/Judgment Poor Vitals/IOs Vital Signs Date Time Temp Pulse Resp B/P Pulse Ox O2 Delivery O2 Flow Rate FiO2 10/06/16 05:20 97.8 80 16 139/6 10/05/16 17:36 97 Assessment & Plan Problem List: (1) Alcohol abuse ICD Code: F10.10 (2) Severe recurrent major depression without psychotic features ICD Code: F33.2 Assessment & Plan Estimated LOS: days considering patient's recent behaviors that appears to be a significant component of a mood disorder with her not adjusted depressive disorder need to consider that and are differential diagnosis please see med adjustments above also reconsult hospitalist to address swelling and discomfort left lower leg Justification for Cont. Inpt. At this time patient will decompensate a placed in a lower level of care Request HC Surrog/Guard Advoc?: No Feng Tuttle MD Oct 06, 2016 10:36
[2016-10-06] MEDS: QUEtiapine FUMARATE 25 MG TAB PO SCH ×2 (16:11→20:41)
--- NOTE | 2016-10-06 16:39 | HHI.PR ---
Subjective Remarks Reconsult for left lower extremity pain and swelling. Patient states initially began experiencing pain and swelling of the left lower leg and foot after she was admitted here. She does have a history of left total knee replacement. Currently on Norvasc which patient states she was started on while she was here however review of medical record shows this medication was continued as part of her medication reconciliation from [facility] - unclear if that medication was started during her previous hospitalization. Patient denies any recent trauma to the leg or previous history of DVTs. She reports that the swelling is better in the morning and then worsens throughout the day. Patient denies any other complaints. She denies any fever/chills, cough, nausea /vomiting, shortness of breath or chest pain. Patient denies any urinary complaints as well. Objective Vitals Vital Signs Date Time Temp Pulse Resp B/P Pulse Ox O2 Delivery O2 Flow Rate FiO2 10/06/16 05:20 97.8 80 16 139/6 10/05/16 17:36 97.6 101 18 132/81 97 10/05/16 16:44 118 186/103 Result Diagram: 10/02/16 2100 10/02/16 1713 Imaging Last Impressions Chest X-Ray 10/02/16 0000 Signed Impressions: Service Date/Time: Sunday, October 02, 2016 17:10 - CONCLUSION: 1. Minimal basilar atelectasis. Exam otherwise unremarkable. Braxton May MD Objective Remarks GENERAL: This is a well-nourished, well-developed patient, in no acute distress. Awake and alert. SKIN: No rashes, ecchymoses or lesions. Warm and dry. HEAD: Atraumatic. Normocephalic. EYES: EOMI. ENT: Nose without bleeding. Throat without erythema. Uvula midline. Airway patent. NECK: Trachea midline. No lymphadenopathy. Supple. CARDIOVASCULAR: Regular rate and rhythm, no gallops, or rubs. RESPIRATORY: No wheezes, rales, or rhonchi. Moderate air entry GASTROINTESTINAL: Abdomen soft, non-tender, nondistended. Bowel sounds active 4. MUSCULOSKELETAL: Extremities without clubbing or cyanosis. 1+ edema noted in LLE extending from upper calf to toes with increased warmth. Mild tenderness to palpation. No erythema appreciated. NEUROLOGICAL: Awake and alert. No focal neuro deficit. Motor and sensory grossly within normal limits. Normal speech. Medications and IVs Current Medications Medications (Trade) Dose Ordered Sig/Perry Route Start Time Stop Time Status Last Admin (Benadryl) 50 mg HS PRN PO 09/30/16 21:00 (Tylenol) 650 mg Q4H PRN PO 09/30/16 18:15 10/02/16 04:53 (Milk Of Magnesia Liq) 30 ml DAILY PRN PO 09/30/16 18:15 10/04/16 06:26 (Mag-Al Plus Susp Liq) 30 ml Q6H PRN PO 09/30/16 18:15 (Atarax) 50 mg Q6H PRN PO 09/30/16 18:15 10/05/16 20:59 (Romazicon Inj) 0.2 mg Q1M PRN IV PUSH 09/30/16 18:15 (Ativan) 1 mg Q4H PRN PO 09/30/16 18:15 10/03/16 09:19 (Ativan Inj) 1 mg Q4H PRN IV PUSH 09/30/16 18:15 (Ativan) 2 mg Q2H PRN PO 09/30/16 18:15 10/01/16 15:45 (Ativan Inj) 2 mg Q2H PRN IV PUSH 09/30/16 18:15 (Ativan Inj) 2 mg Q1H PRN IV PUSH 09/30/16 18:15 (Ativan Inj) 2 mg Q15M PRN IV PUSH 09/30/16 18:15 (Norvasc) 5 mg BID PO 09/30/16 21:00 Hold 10/06/16 09:26 (LaMICtal) 25 mg BID PO 09/30/16 21:00 10/06/16 09:27 (Cymbalta Dr) 30 mg DAILY PO 10/01/16 09:00 10/06/16 09:26 (Folate) 1 mg DAILY PO 10/02/16 09:00 10/06/16 09:27 (Vitamin B1) 100 mg DAILY PO 10/02/16 09:00 10/06/16 09:26 (Lioresal) 10 mg Q8HR PRN PO 10/01/16 16:15 10/05/16 09:10 (Motrin) 600 mg Q6H PRN PO 10/01/16 17:30 (Catapres) 0.1 mg Q6H PRN PO 10/02/16 05:30 10/05/16 16:40 (Inderal) 10 mg Q8HR PRN PO 10/02/16 17:00 10/02/16 16:50 ([place] 5-325 Mg) 1 tab Q6H PRN PO 10/02/16 17:00 10/06/16 13:36 (Nitrostat Sl) 0.4 mg Q5M PRN SL 10/02/16 17:15 (Inderal) 20 mg Q12HR PO 10/02/16 21:00 10/06/16 09:26 (Protonix) 40 mg DAILY PO 10/03/16 09:00 10/17/16 08:59 10/06/16 09:26 (Flonase Florin Spr) 1 spray BID EACH NARE 10/03/16 21:00 10/06/16 09:00 (SEROquel) 50 mg HS PO 10/05/16 21:00 10/05/16 20:48 (SEROquel) 25 mg BID@08,16 PO 10/06/16 16:00 10/06/16 16:11 A/P Problem List: (1) Severe recurrent major depression without psychotic features ICD Code: F33.2 Status: Acute (2) Depression, major, single episode, moderate ICD Code: F32.1 Status: Acute (3) Alcohol abuse ICD Code: F10.10 Status: Chronic (4) HTN (hypertension) ICD Code: I10 Status: Chronic (5) Seasonal allergies ICD Code: J30.2 Status: Acute (6) GERD (gastroesophageal reflux disease) ICD Code: K21.9 Status: Chronic (7) Chest pain ICD Code: R07.9 Status: Resolved Assessment and Plan Patient is a 61-year-old female with a medical history of HTN, GERD, PTSD, EtOH who came in to the hospital under Casas act from [facility] secondary to suicidal ideation. Patient is now admitted to inpatient psychiatry unit for further evaluation. Hospital service we consulted for left lower leg edema and pain.. Suicidal ideation, depression - Managed by psychiatry team Left lower leg edema/pain - doppler US ordered to R/O DVT although patient appears to be a low risk as she appears to be up and ambulating - hold Norvasc as possible medication side effect HTN - Continue on propanolol - As stated above Norvasc on hold - Monitor BP closely and adjust treatment as indicated Seizures, from alcohol withdrawal - Continue lamotrigine - Seizure precautions ETOH abuse, chronic - Cont CIWA protocol - Folic acid, thiamine - Monitor for withdrawals GERD, chronic - Cont Pantoprazole Daily Seasonal allergies, patient usually takes [place] nasal spray at home. -Flonase BID DVT prophylaxis: Encourage ambulation Written by La Nena Lemus PA-C acting as scribe for Dr. Abad on 10/06/16 at 13:34. This note was transcribed by scribe La Nena Lemus. I, Dr. Lo Abad personally performed the history, physical exam, and medical decision making; and confirmed the accuracy of the information in the transcribed note. Authenticated by Dr. Lo Abad on 10/06/16 at 16:41. La Nena Lemus Oct 06, 2016 16:39 Lo Abad MD Oct 06, 2016 16:41
--- NOTE | 2016-10-06 16:41 | RADRPT ---
EXAM DATE/TIME: 10/06/2016 16:06 [place] COMPARISON: No previous studies available for comparison. INDICATIONS : Left leg swelling. MEDICAL HISTORY : Seizures. Migraines. HTN. Diabetes. PTSD. SURGICAL HISTORY : Hysterectomy. Cystaseal. Rectoseal. Left lower hip replaced x2. Left leg broke and rebroke - sean a nd screw. ENCOUNTER: Initial ACUITY: 2 weeks PAIN SCORE: 5/10 LOCATION: Left leg. TECHNIQUE: Venous ultrasound of the leg was performed from the inguinal ligament to the proximal calf. Real-dexter e, color Doppler and spectral tracing, compression and augmentation techniques were used. FINDINGS: There is normal compressibility of the deep venous system from the inguinal region to the proximal ca lf. No echogenic clot is seen in the lumen of the common femoral, femoral, popliteal, and posterior tibial veins. There is a normal response of the venous system to proximal and distal augmentation an d respiration. CONCLUSION: Normal examination. Aleksandr Leigh MD on October 06, 2016 at 16:39 Board Certified Radiologist. This report was verified electronically.
[2016-10-07 05:02] VITALS: BP 140/68; PULSE 77; RESP 18; TEMP 97.8; O2SAT 99
[2016-10-07] MEDS: QUEtiapine FUMARATE 25 MG TAB PO SCH ×3 (08:21→20:13)
[2016-10-07] MEDS: FOLIC ACID 1 MG TAB PO SCH (09:18)
[2016-10-07] MEDS: PROPRANOLOL HCL 20 MG TAB PO SCH ×2 (09:18→20:13)
[2016-10-07] MEDS: PANTOPRAZOLE SOD 40 MG DELAYED RELEASE TAB PO SCH (09:18)
[2016-10-07] MEDS: THIAMINE HCL 100 MG TAB PO SCH (09:18)
[2016-10-07] MEDS: hydrOXYzine HCL 50 MG TAB PO PRN (09:19)
[2016-10-07] MEDS: BACLOFEN 10 MG TAB PO PRN (09:19)
[2016-10-07] MEDS: lamoTRIgine 25 MG TAB PO SCH ×2 (09:19→20:13)
[2016-10-07] MEDS: DULoxetine HCl DR 30 MG CAP PO SCH (09:19)
[2016-10-07] MEDS: FLUTICASONE PROPIONATE 50 MCG/ACT 16 GM NASAL SPRAY EACH NARE SCH ×2 (09:22→20:13)
--- NOTE | 2016-10-07 10:48 | HHI.PYPN ---
Subjective Remarks Patient more calm and euthymic today. She does not have serious complaints. Depressive symptoms appear to be lifting. Review of Systems ROS Limitations: Clinical Condition Objective Alert: Yes [place]: Person, Place, Date, Situation Mood: Calm Affect: Euthymic Memory Intact: Comment (not formally tested) Hallucinations: Auditory (denies) Delusions: No Delusion Type: Other (denies) Suicidal: Ideation (denies) Homicidal: Ideation (denies) Insight/Judgment Impaired but improving. Vitals/IOs Vital Signs Date Time Temp Pulse Resp B/P Pulse Ox O2 Delivery O2 Flow Rate FiO2 10/07/16 05:02 97.8 77 18 140/68 99 Assessment & Plan Problem List: (1) Alcohol abuse ICD Code: F10.10 (2) Severe recurrent major depression without psychotic features ICD Code: F33.2 Assessment & Plan Estimated LOS 3: days patient needs more time to improve her symptoms of depression and responded to antidepressant therapies. Justification for Cont. Inpt. Unable to care for self. Request HC Surrog/Guard Advoc?: No Brett Foley MD Oct 07, 2016 10:48
[2016-10-07 15:11] VITALS: BP 118/67; PULSE 87; RESP 15; O2SAT 98
[2016-10-07] MEDS: ACETAMINOPHEN/HYDROcodone 325 MG/5 MG TAB PO PRN (15:28)
[2016-10-07 19:15] VITALS: BP 125/60; PULSE 72; RESP 16; TEMP 98.6; O2SAT 100
[2016-10-08 05:36] VITALS: BP 151/75; PULSE 96; RESP 18; TEMP 98.3; O2SAT 98
[2016-10-08] MEDS: FLUTICASONE PROPIONATE 50 MCG/ACT 16 GM NASAL SPRAY EACH NARE SCH ×2 (08:44→21:00)
[2016-10-08] MEDS: DULoxetine HCl DR 30 MG CAP PO SCH (08:45)
[2016-10-08] MEDS: PANTOPRAZOLE SOD 40 MG DELAYED RELEASE TAB PO SCH (08:45)
[2016-10-08] MEDS: QUEtiapine FUMARATE 25 MG TAB PO SCH ×3 (08:45→21:00)
[2016-10-08] MEDS: PROPRANOLOL HCL 20 MG TAB PO SCH ×2 (08:45→21:00)
[2016-10-08] MEDS: lamoTRIgine 25 MG TAB PO SCH ×2 (08:45→21:00)
[2016-10-08] MEDS: FOLIC ACID 1 MG TAB PO SCH (08:45)
[2016-10-08] MEDS: BACLOFEN 10 MG TAB PO PRN ×2 (08:48→21:35)
[2016-10-08] MEDS: THIAMINE HCL 100 MG TAB PO SCH (09:00)
[2016-10-08] MEDS: hydrOXYzine HCL 50 MG TAB PO PRN ×2 (10:37→21:35)
[2016-10-08] MEDS: LORATADINE 10 MG TAB PO SCH (13:30)
[2016-10-08] MEDS ORDERED: ICU - MAGNESIUM SULFATE 2 GM/NS 100 ML IV PRN ×2 (14:30)
[2016-10-08] MEDS ORDERED: ICU - POTASSIUM PHOSPHATE MONOBASIC 500 MG TAB PO PRN (14:30)
[2016-10-08] MEDS ORDERED: ICU - D/C ICU ELECTROLYTE ORDERS PRN (14:30)
[2016-10-08] MEDS ORDERED: ICU - POTASSIUM CHLORIDE/AQUEOUS SOLN 20 MEQ/100 ML IVPB IV PRN (14:30)
[2016-10-08] MEDS ORDERED: ICU - SODIUM PHOSPHATE 30 MMOL/NS 250 ML IV PRN ×2 (14:30)
[2016-10-08] MEDS ORDERED: POTASSIUM CHLORIDE 25 MEQ EFFERVESCENT TAB PO PRN (14:30)
[2016-10-08] MEDS ORDERED: ICU - MAGNESIUM SULFATE 4 GM/NS 100 ML IV PRN ×2 (14:30)
[2016-10-08] MEDS ORDERED: ICU - CALL ORDERING PHYSICIAN PRN (14:30)
[2016-10-08] MEDS ORDERED: ICU - POTASSIUM PHOSPHATE 30 MMOL/NS 250 ML IV PRN ×2 (14:30)
[2016-10-08] MEDS ORDERED: ICU - POTASSIUM CHLORIDE/AQUEOUS SOLN 40 MEQ/100 ML IVPB IV PRN (14:30)
[2016-10-08] MEDS ORDERED: ICU - MAGNESIUM OXIDE 400 MG TAB PO PRN (14:30)
--- NOTE | 2016-10-08 14:33 | HHI.PR ---
Subjective Remarks Follow up left leg swelling, and hypertension. Patient seen and examined in her room today. She still complains of swelling to LLE, and states it is worse at night. Patient explained her knee surgery was one year ago, but she is unsure when the swelling started. Explained to her that Norvasc can cause extremity swelling, and that we could try another blood pressure medication. She stated she is willing to try it, because she feels her pressure is high cause she has occasional headaches. She is also complaining of nasal congestion and post nasal drip, and states the Flonase is not helping. She denies any chest pain, fever, chill, or shortness of breath. Objective Vitals Vital Signs Date Time Temp Pulse Resp B/P Pulse Ox O2 Delivery O2 Flow Rate FiO2 10/08/16 05:36 98.3 96 18 151/75 98 10/07/16 19:15 98.6 72 16 125/60 100 10/07/16 15:11 87 15 118/67 98 Imaging Last Impressions Lower Extremity Ultrasound 10/06/16 0000 Signed Impressions: Service Date/Time: September 16:06 - CONCLUSION: Normal examination. Aleksandr Leigh MD Chest X-Ray 10/02/16 0000 Signed Impressions: Service Date/Time: Sunday, October 02, 2016 17:10 - CONCLUSION: 1. Minimal basilar atelectasis. Exam otherwise unremarkable. Braxton May MD Objective Remarks GENERAL: This is a well-nourished, well-developed patient, who is in no distress. SKIN: No rashes, ecchymoses or lesions. Warm and dry. HEAD: Atraumatic. Normocephalic. No temporal or scalp tenderness. EYES: Pupils equal round and reactive. No scleral icterus. No injection or drainage. ENT: Nose without bleeding. Throat without erythema. Uvula midline. Airway patent. NECK: Trachea midline. No JVD or lymphadenopathy. Supple. CARDIOVASCULAR: Regular rate and rhythm, no gallops, or rubs. RESPIRATORY: No wheezes, rales, or rhonchi. Moderate air entry GASTROINTESTINAL: Abdomen soft, non-tender, nondistended. Bowel sounds active 4. MUSCULOSKELETAL: Left foot +2 pitting edema. No tremors noted. NEUROLOGICAL: Awake and alert. No focal neuro deficit. Motor and sensory grossly within normal limits. Normal speech. A/P Medications and IVs Current Medications Medications (Trade) Dose Ordered Sig/Perry Route Start Time Stop Time Status Last Admin (Benadryl) 50 mg HS PRN PO 09/30/16 21:00 (Tylenol) 650 mg Q4H PRN PO 09/30/16 18:15 10/02/16 04:53 (Milk Of Magnesia Liq) 30 ml DAILY PRN PO 09/30/16 18:15 10/04/16 06:26 (Mag-Al Plus Susp Liq) 30 ml Q6H PRN PO 09/30/16 18:15 (Atarax) 50 mg Q6H PRN PO 09/30/16 18:15 10/08/16 10:37 (Romazicon Inj) 0.2 mg Q1M PRN IV PUSH 09/30/16 18:15 (Ativan) 1 mg Q4H PRN PO 09/30/16 18:15 10/03/16 09:19 (Ativan Inj) 1 mg Q4H PRN IV PUSH 09/30/16 18:15 (Ativan) 2 mg Q2H PRN PO 09/30/16 18:15 10/01/16 15:45 (Ativan Inj) 2 mg Q2H PRN IV PUSH 09/30/16 18:15 (Ativan Inj) 2 mg Q1H PRN IV PUSH 09/30/16 18:15 (Ativan Inj) 2 mg Q15M PRN IV PUSH 09/30/16 18:15 (Norvasc) 5 mg BID PO 09/30/16 21:00 Hold 10/06/16 09:26 (LaMICtal) 25 mg BID PO 09/30/16 21:00 10/08/16 08:45 (Cymbalta Dr) 30 mg DAILY PO 10/01/16 09:00 10/08/16 08:45 (Folate) 1 mg DAILY PO 10/02/16 09:00 10/08/16 08:45 (Vitamin B1) 100 mg DAILY PO 10/02/16 09:00 10/08/16 09:00 (Lioresal) 10 mg Q8HR PRN PO 10/01/16 16:15 10/08/16 08:48 (Motrin) 600 mg Q6H PRN PO 10/01/16 17:30 (Catapres) 0.1 mg Q6H PRN PO 10/02/16 05:30 10/05/16 16:40 (Inderal) 10 mg Q8HR PRN PO 10/02/16 17:00 10/02/16 16:50 (Chavies 5-325 Mg) 1 tab Q6H PRN PO 10/02/16 17:00 10/07/16 15:28 (Nitrostat Sl) 0.4 mg Q5M PRN SL 10/02/16 17:15 (Inderal) 20 mg Q12HR PO 10/02/16 21:00 10/08/16 08:45 (Protonix) 40 mg DAILY PO 10/03/16 09:00 10/17/16 08:59 10/08/16 08:45 (Flonase Florin Spr) 1 spray BID EACH NARE 10/03/16 21:00 10/08/16 08:44 (SEROquel) 50 mg HS PO 10/05/16 21:00 10/07/16 20:13 (SEROquel) 25 mg BID@08,16 PO 10/06/16 16:00 10/08/16 08:45 (Claritin) 10 mg DAILY PO 10/08/16 13:30 Urinary Catheter: No Vascular Central Line Catheter: No A/P Problem List: (1) Severe recurrent major depression without psychotic features ICD Code: F33.2 Status: Acute (2) Depression, major, single episode, moderate ICD Code: F32.1 Status: Acute (3) Alcohol abuse ICD Code: F10.10 Status: Chronic (4) HTN (hypertension) ICD Code: I10 Status: Chronic (5) Seasonal allergies ICD Code: J30.2 Status: Acute (6) GERD (gastroesophageal reflux disease) ICD Code: K21.9 Status: Chronic (7) Chest pain ICD Code: R07.9 Status: Resolved Assessment and Plan Patient is a 61-year-old female with a medical history of HTN, GERD, PTSD, EtOH who came in to the hospital under Casas act from [facility] secondary to suicidal ideation. Patient is now admitted to inpatient psychiatry unit for further evaluation. We are continuing to follow for medical management and chest pain. Chest pain, resolved, Withdrawal symptoms resolved Labs: Troponin and CPK negative, CBC, Mg and CMP unremarkable Chest x-ray shows minimal basilar atelectasis - Cont sublingual nitro if needed HTN, currently uncontrolled -Add lisinopril 5mg PO daily, DC norvasc due to leg swelling. Cont clonidine 0.1 mg when necessary -Cont propranolol 20 mg twice a day. - Monitor BP and trend Suicidal ideation, depression - Managed by psychiatry team Seizures, from alcohol withdrawal - Continue lamotrigine - Seizure precautions EtOH abuse, chronic - Cont CITN protocol - Folic acid, thiamine - Monitor for withdrawals Right leg pain, currently resolved Back pain, spasms - Cont baclofen 10 mg 3 times a day when necessary - If continues to have pain on the right leg or back we'll consider x-rays studies GERD, chronic - Cont Pantoprazole Daily Seasonal allergies, patient usually takes Medina nasal spray at home. -Flonase BID -Claritin daily DVT prophylaxis: Encourage ambulation Discussed with patient, Dr. Abad and nursing staff Discharge Planning Once cleared by psychiatry Claudia Vinson Oct 08, 2016 14:33
[2016-10-08] MEDS: ACETAMINOPHEN 325 MG TAB PO PRN (15:51)
[2016-10-08] MEDS: ACETAMINOPHEN/HYDROcodone 325 MG/5 MG TAB PO PRN (17:02)
[2016-10-08 18:18] VITALS: BP 124/88; PULSE 100; RESP 18; TEMP 98.4; O2SAT 95
--- NOTE | 2016-10-08 20:40 | HHI.PYPN ---
Subjective Remarks Pt seen and discussed with staff. Pt has been calm and cooperative wtih treatmetn. She reports that mood is better today and she has not had any SI thoughts today. No medication side effects. Objective Alert: Yes [place]: Person, Place, Date, Situation Mood: Calm Affect: Restricted Memory Intact: Comment (not formally tested) Hallucinations: Other (none) Delusions: No Delusion Type: Other (none) Suicidal: Ideation (denies) Homicidal: Ideation (denies) Insight/Judgment fair Vitals/IOs Vital Signs Date Time Temp Pulse Resp B/P Pulse Ox O2 Delivery O2 Flow Rate FiO2 10/08/16 18:18 98.4 100 18 124/88 95 Assessment & Plan Problem List: (1) Alcohol abuse ICD Code: F10.10 (2) Severe recurrent major depression without psychotic features ICD Code: F33.2 Assessment & Plan Continue current tx plan. Estimated LOS: days Justification for Cont. Inpt. risk of decompensation Request HC Surrog/Guard Advoc?: Alessandra Samaniego MD Oct 08, 2016 20:40
[2016-10-09 05:35] VITALS: BP 146/87; PULSE 91; RESP 16; TEMP 98.1; O2SAT 98
[2016-10-09] MEDS: BACLOFEN 10 MG TAB PO PRN ×2 (06:20→21:31)
[2016-10-09] MEDS: FLUTICASONE PROPIONATE 50 MCG/ACT 16 GM NASAL SPRAY EACH NARE SCH ×2 (08:13→20:41)
[2016-10-09] MEDS: THIAMINE HCL 100 MG TAB PO SCH (08:16)
[2016-10-09] MEDS: QUEtiapine FUMARATE 25 MG TAB PO SCH ×3 (08:22→20:42)
[2016-10-09] MEDS: LORATADINE 10 MG TAB PO SCH (08:22)
[2016-10-09] MEDS: PANTOPRAZOLE SOD 40 MG DELAYED RELEASE TAB PO SCH (08:22)
[2016-10-09] MEDS: DULoxetine HCl DR 30 MG CAP PO SCH (08:22)
[2016-10-09] MEDS: LISINOPRIL 5 MG TAB PO SCH (08:22)
[2016-10-09] MEDS: lamoTRIgine 25 MG TAB PO SCH ×2 (08:22→20:42)
[2016-10-09] MEDS: FOLIC ACID 1 MG TAB PO SCH (08:22)
[2016-10-09] MEDS: PROPRANOLOL HCL 20 MG TAB PO SCH ×2 (09:10→20:42)
[2016-10-09] MEDS: ACETAMINOPHEN/HYDROcodone 325 MG/5 MG TAB PO PRN (15:55)
[2016-10-09] MEDS: hydrOXYzine HCL 50 MG TAB PO PRN (21:31)
--- NOTE | 2016-10-09 22:11 | HHI.PYPN ---
Subjective Remarks Pt seen and discussed with staff. She reports that she is feeling angry and depressed today due to peer in milieu. Coping skills are limited. She reports feeling better after interview. No medication side effects. NO SI/HI. Objective Alert: Yes [place]: Person, Place, Date, Situation Mood: Calm, Depressed Affect: Restricted Memory Intact: Comment (not formally tested) Hallucinations: Other (none) Delusions: No Delusion Type: Other (none) Suicidal: Ideation (denies) Homicidal: Ideation (denies) Insight/Judgment poor Vitals/IOs Vital Signs Date Time Temp Pulse Resp B/P Pulse Ox O2 Delivery O2 Flow Rate FiO2 10/09/16 05:35 98.1 91 16 146/87 98 Assessment & Plan Problem List: (1) Alcohol abuse ICD Code: F10.10 (2) Severe recurrent major depression without psychotic features ICD Code: F33.2 Assessment & Plan Continue current tx plan. Estimated LOS: days Justification for Cont. Inpt. risk of decompenastion Request HC Surrog/Guard Advoc?: Alessandra Samaniego MD Oct 09, 2016 22:11
[2016-10-10] MEDS: ACETAMINOPHEN/HYDROcodone 325 MG/5 MG TAB PO PRN ×3 (00:05→22:04)
[2016-10-10 07:36] VITALS: BP 142/89; PULSE 83; RESP 18; TEMP 98.5; O2SAT 95
[2016-10-10] MEDS: LORATADINE 10 MG TAB PO SCH (08:54)
[2016-10-10] MEDS: PANTOPRAZOLE SOD 40 MG DELAYED RELEASE TAB PO SCH (08:54)
[2016-10-10] MEDS: FOLIC ACID 1 MG TAB PO SCH (08:54)
[2016-10-10] MEDS: QUEtiapine FUMARATE 25 MG TAB PO SCH ×3 (08:54→21:30)
[2016-10-10] MEDS: DULoxetine HCl DR 30 MG CAP PO SCH (08:54)
[2016-10-10] MEDS: PROPRANOLOL HCL 20 MG TAB PO SCH ×2 (08:54→21:31)
[2016-10-10] MEDS: LISINOPRIL 5 MG TAB PO SCH (08:54)
[2016-10-10] MEDS: lamoTRIgine 25 MG TAB PO SCH ×2 (08:54→21:31)
[2016-10-10] MEDS: THIAMINE HCL 100 MG TAB PO SCH (08:54)
[2016-10-10] MEDS: FLUTICASONE PROPIONATE 50 MCG/ACT 16 GM NASAL SPRAY EACH NARE SCH ×2 (08:57→21:30)
[2016-10-10] MEDS: hydrOXYzine HCL 50 MG TAB PO PRN ×2 (09:29→21:33)
--- NOTE | 2016-10-10 14:29 | HHI.PYPN ---
Subjective Remarks Patient discussed with treatment team and chart review, patient then seen in her room with nurse Leanna. Patient initially calm pleasant with me states feeling better denying suicidality or voices. We started to discuss discharge plans. Patient became somewhat anxious and irritable, appearing to be making some some excuses for continuing her stay. She is been compliant with her medications some mild subtle drug-seeking at times. However in any event I feel patient is reaching a maximum benefit of this hospitalization. I told her that I will be planning to discharge her tomorrow with referral to outpatient mental health services and substance abuse services patient then came back to me and stated she made a phone call to one of her roommates. Patient stated the room and wanted to stay a few days longer. I declined that. Patient then stated I need her son's okay since he was the health care surrogate, I declined that offer also. She became angry then and walk away. I question the some degree of manipulation occurring at this time thus the plan will be for to be discharged tomorrow with follow-up as mentioned above Review of Systems Except as stated in HPI: all other systems reviewed are Neg Objective Alert: Yes [place]: Person, Place, Date, Situation Mood: Calm, Depressed Affect: Restricted Memory Intact: Comment (not formally tested) Hallucinations: Other (none) Delusions: No Delusion Type: Other (none) Suicidal: Ideation (denies) Homicidal: Ideation (denies) Insight/Judgment Poor Vitals/IOs Vital Signs Date Time Temp Pulse Resp B/P Pulse Ox O2 Delivery O2 Flow Rate FiO2 10/10/16 07:36 98.5 83 18 142/89 95 Intake and Output 10/09/16 10/09/16 10/10/16 08:00 16:00 00:00 Intake Total 480 ml Balance 480 ml Assessment & Plan Problem List: (1) Alcohol abuse ICD Code: F10.10 (2) Severe recurrent major depression without psychotic features ICD Code: F33.2 Assessment & Plan Estimated LOS: days this time patient is meeting maximum benefit of this hospitalization will consider discharge tomorrow Justification for Cont. Inpt. See above Discharge Planning To be determined Request HC Surrog/Guard Advoc?: No Feng Tuttle MD Oct 10, 2016 14:29
[2016-10-10] MEDS: BACLOFEN 10 MG TAB PO PRN (14:48)
--- NOTE | 2016-10-10 15:54 | HHI.PR ---
Subjective Remarks Follow-up for hypertension Patient still hypertensive, no headache, nausea, chest pain or vomiting. Agreed to increase lisinopril Objective Vitals Vital Signs Date Time Temp Pulse Resp B/P Pulse Ox O2 Delivery O2 Flow Rate FiO2 10/10/16 07:36 98.5 83 18 142/89 95 10/10/16 01:05 20 I/O 10/09/16 10/09/16 10/09/16 10/10/16 10/10/16 10/10/16 07:00 15:00 23:00 07:00 15:00 23:00 Intake Total 480 ml Balance 480 ml Intake Oral 480 ml Objective Remarks Not in distress, well-nourished, looks stated age PERRL, pink conjunctiva without injection, anicteric Nose without bleeding, airway patent, oropharynx clear Supple neck Normal rate and regular rhythm, no murmurs gallops or rubs appreciated. Clear to auscultation and symmetric bilaterally, normal respiratory effort. Normal bowel sounds, soft, non-tender, nondistended, no guarding. Extremities without clubbing, cyanosis, trace lower extremity edema left more than the right. No rash of generalized distribution. Skin is warm and dry. AAO x3, no cranial nerve deficits, moves all 4 extremities, no focal neurologic deficits Normal mood, appropriate affect A/P Problem List: (1) Severe recurrent major depression without psychotic features ICD Code: F33.2 Status: Acute (2) Depression, major, single episode, moderate ICD Code: F32.1 Status: Acute (3) Alcohol abuse ICD Code: F10.10 Status: Chronic (4) HTN (hypertension) ICD Code: I10 Status: Chronic (5) Seasonal allergies ICD Code: J30.2 Status: Acute (6) GERD (gastroesophageal reflux disease) ICD Code: K21.9 Status: Chronic (7) Chest pain ICD Code: R07.9 Status: Resolved Assessment and Plan Patient is a 61-year-old female with a medical history of HTN, GERD, PTSD, EtOH who came in to the hospital under Casas act from [facility] secondary to suicidal ideation. Patient is now admitted to inpatient psychiatry unit for further evaluation. We are continuing to follow for medical management and chest pain. Chest pain, resolved, Withdrawal symptoms resolved Labs: Troponin and CPK negative, CBC, Mg and CMP unremarkable Chest x-ray shows minimal basilar atelectasis - Cont sublingual nitro if needed HTN, currently uncontrolled - Increase lisinopril to 20 mg daily. Cont clonidine 0.1 mg when necessary -Cont propranolol 20 mg twice a day. - Monitor BP and trend Suicidal ideation, depression - Managed by psychiatry team Seizures, from alcohol withdrawal - Continue lamotrigine - Seizure precautions EtOH abuse, chronic - Cont [facility] protocol - Folic acid, thiamine - Monitor for withdrawals Right leg pain, currently resolved Back pain, spasms - Cont baclofen 10 mg 3 times a day when necessary - If continues to have pain on the right leg or back we'll consider x-rays studies GERD, chronic - Cont Pantoprazole Daily Seasonal allergies, patient usually takes Medina nasal spray at home. -Flonase BID -Claritin daily DVT prophylaxis: Encourage ambulation Discussed with patient, Dr. Abad and nursing staff Discharge Planning Lo Abad MD Oct 10, 2016 15:54
[2016-10-10 20:05] VITALS: BP 166/111; PULSE 68; RESP 18; TEMP 98.2
[2016-10-10] MEDS: cloNIDine HCL 0.1 MG TAB PO PRN (21:31)
[2016-10-11] MEDS: hydrOXYzine HCL 50 MG TAB PO PRN ×2 (05:32→11:49)
[2016-10-11] MEDS: ACETAMINOPHEN/HYDROcodone 325 MG/5 MG TAB PO PRN (05:33)
[2016-10-11 06:26] VITALS: BP 138/84; PULSE 96; RESP 18; TEMP 98; O2SAT 96
[2016-10-11] MEDS: LORATADINE 10 MG TAB PO SCH (08:33)
[2016-10-11] MEDS: THIAMINE HCL 100 MG TAB PO SCH (08:33)
[2016-10-11] MEDS: FLUTICASONE PROPIONATE 50 MCG/ACT 16 GM NASAL SPRAY EACH NARE SCH (08:33)
[2016-10-11] MEDS: lamoTRIgine 25 MG TAB PO SCH (08:33)
[2016-10-11] MEDS: QUEtiapine FUMARATE 25 MG TAB PO SCH (08:33)
[2016-10-11] MEDS: PANTOPRAZOLE SOD 40 MG DELAYED RELEASE TAB PO SCH (08:34)
[2016-10-11] MEDS: FOLIC ACID 1 MG TAB PO SCH (08:34)
[2016-10-11] MEDS: DULoxetine HCl DR 30 MG CAP PO SCH (08:34)
[2016-10-11] MEDS: PROPRANOLOL HCL 10 MG TAB PO PRN (08:37)
[2016-10-11] MEDS ORDERED: LISINOPRIL 5 MG TAB PO SCH (09:00)
[2016-10-11] MEDS: PROPRANOLOL HCL 20 MG TAB PO SCH (09:00)
[2016-10-11] MEDS ORDERED: LISINOPRIL 20 MG TAB PO SCH (09:00)
[2016-10-11] MEDS ORDERED: LISI-515 PO (10:52)
[2016-10-11] MEDS ORDERED: FLUT50SP EACH NARE (10:52)
[2016-10-11] MEDS ORDERED: FOLI1TAB4 PO (10:52)
[2016-10-11] MEDS ORDERED: AMLO5 PO (10:52)
[2016-10-11] MEDS ORDERED: DULO1CAP2 PO (10:52)
[2016-10-11] MEDS ORDERED: PANT40TA3 PO (10:52)
[2016-10-11] MEDS ORDERED: LORA-361 PO (10:52)
[2016-10-11] MEDS ORDERED: PROP20TA3 PO (10:52)
[2016-10-11] MEDS ORDERED: VITA100T2 PO (10:52)
[2016-10-11] MEDS ORDERED: LAMO25 PO (10:52)
[2016-10-11] MEDS ORDERED: QUET1TAB7 PO (10:52)
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
[2016-10-11] MEDS: ACETAMINOPHEN 325 MG TAB PO PRN (11:50)
== END 2016-10-11 13:10 | disposition home or self-care (01) | DRG 885 ==
LOC: H260 14:37
PROVIDERS: ADMIT Psychiatry & Neurology Psychiatry; ATTEND Psychiatry & Neurology Psychiatry
DX: F33.2 Major depressive disorder, recurrent severe without psychotic features (principal); R45.851 Suicidal ideations; I10 Essential (primary) hypertension; F10.239 Alcohol dependence with withdrawal, unspecified; Y90.7 Blood alcohol level of 200-239 mg/100 ml; Z91.410 Personal history of adult physical and sexual abuse; K21.9 Gastro-esophageal reflux disease without esophagitis; F43.10 Post-traumatic stress disorder, unspecified; Z96.652 Presence of left artificial knee joint; F17.210 Nicotine dependence, cigarettes, uncomplicated; M79.604 Pain in right leg; M54.9 Dorsalgia, unspecified; R51 Headache; R07.9 Chest pain, unspecified; J30.2 Other seasonal allergic rhinitis; R09.82 Postnasal drip
CPT/HCPCS: 71010; 80053; 82550; 83735; 84484; 85025; 87641; 93005; 93971; Q0163